=== PATIENT | male | born 1985 | race Two or more races ===

== ENCOUNTER 2017-03-13 18:18 | Emergency (ER) | payer MEDICAID ==
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
== END 2017-03-13 19:55 | disposition home or self-care (01) ==
LOC: ER 18:18
DX: S20.212A Contusion of left front wall of thorax, initial encounter (principal); S20.211A Contusion of right front wall of thorax, initial encounter; V89.2XXA Person injured in unspecified motor-vehicle accident, traffic, initial encounter; Y93.89 Activity, other specified; Y92.89 Other specified places as the place of occurrence of the external cause; Y99.8 Other external cause status
CPT/HCPCS: 71010-TC; 71250-TC; Z7502